=== PATIENT | female | born 1945 | race Caucasian/White ===

== ENCOUNTER 2024-09-05 10:11 | Outpatient (CLI) | payer MEDICARE, SELFPAY ==
[2024-09-05 11:16] LABS: Anion Gap 5 mmol/L (4-12); Blood Urea Nitrogen 27 mg/dL (7-17); Calcium 9.5 mg/dL (8.4-10.2); Carbon Dioxide 29 mmol/L (22-30); Chloride 103 mmol/L (98-107); Estimated Glomerular Filt Rate > 60; Glucose 95 mg/dL (65-110); Potassium 4.1 mmol/L (3.4-5.0); Sodium 137 mmol/L (137-145)
== END 2024-09-05 10:12 | disposition home or self-care (01) ==
LOC: ANHSURGERY 10:19
PROVIDERS: Anesthesiology; Visit Provider Urology
DX: E11.9 Type 2 diabetes mellitus without complications (principal); Z79.899 Other long term (current) drug therapy
CPT/HCPCS: 36415; 80048

== ENCOUNTER 2024-09-14 00:49 | Day surgery (SDC) | payer MEDICARE, SELFPAY ==
[2024-09-04 09:46] VITALS: BMI 35.1
--- NOTE | 2024-09-04 10:07 | PC.NURSE ---
Report to the Outpatient Waiting Room, entrance under the green pavilion located off [facility], at time _06:00am on date _09/14/24 . Planned Procedure Time: _07:30am .? Time changes happen often and if your time is changed the preop area will call you the afternoon before. - You and your visitor will be asked to self-screen and do not enter if you have any COVID symptoms. Please call surgeon if you need to reschedule. - A mask is optional within the hospital at this time. Patients may have clear liquids (water, carbonated beverages, clear teas, apple juice) until 3 hours prior to surgery with a maximum of 20 ounces. - No food from midnight until time of surgery and no smoking. This includes no chewing gum, candy or mints.( 04:30am) Take only the following medications with a SIP of water on the morning of surgery: Coreg, Imdur, Ranexa, and Levothyroxine & Tylenol as needed , DO NOT STOP ANY OF YOUR OTHER PRESCRIPTION MEDICATIONS PRIOR TO SURGERY EXCEPT THE FOLLOWING Hold Plavix and Aspirin for 7 days prior to surgery per Dr Austin, Date to take last dose is 09/06/24 Medications to discontinue per physician Hold all vitamins and supplements for 3 days prior per Anesthesia Date to take last dose____09/10/24 Please no make-up, nail burkinan, hairspray, perfume, deodorant, or body powder the day of surgery.? No jewelry (including any body piercings) or valuables the day of surgery, leave them at home.? Please take a shower or bath the night before, or the morning of, surgery with an antibacterial soap.? Wear comfortable, loose fitting clothing.? - Jewelry must be removed prior to entering the operating room.? Rings and piercings that are not removed may be cut off. - The hospital will not accept responsibility for valuables.? - Please leave all valuables, including medications, at home the day of surgery. If you are going home after surgery, a licensed uke driver must drive you home.? - NO public transportation without another adult if you receive anesthesia. - We recommend that an adult stay with you for 24 hours following discharge. - We also recommend that you do not drive, make important decision, drink alcoholic beverages, or take any drugs that were not prescribed by your health care provider for at least 24 hours after your discharge time. Follow any additional instructions given to you from your surgeon. Telephone instructions given to __Patient and asked if any additional questions and then verbalized understanding. Patient advised to call surgeon office or pre surgery nurse liaison [phone] if any additional questions.
--- NOTE | 2024-09-09 12:05 | PM.IMHP ---
H&P: HPI History of Present Illness Date/Time: 09/09/24 12:05 Chief Complaint: ISD Narrative: mixed incontinence. Bulking agent for ISD Review of Systems Review of Systems: All systems reviewed & are unremarkable except as noted in HPI and below PMFSH Social History Social History Smoking status: Never smoker Alcohol intake: never Substance use: never Living arrangements: with family Spiritual care concerns: No Meds Home Medications and Allergies Home Medications Medication Instructions Recorded Confirmed Type acetaminophen 650 mg 1,300 mg PO Q12H PRN Pain 09/04/24 09/04/24 History tablet,extended release aspirin 81 mg tablet,delayed 81 mg PO DAILY 09/04/24 09/04/24 History release atorvastatin 40 mg tablet 40 mg PO HS 09/04/24 09/04/24 History biotin 1 mg capsule 1 mg PO DAILY 09/04/24 09/04/24 History carvedilol 3.125 mg tablet 3.125 mg PO BID 09/04/24 09/04/24 History cetirizine 10 mg tablet (Zyrtec) 10 mg PO DAILY 09/04/24 09/04/24 History clopidogrel 75 mg tablet 75 mg PO DAILY 09/04/24 09/04/24 History isosorbide mononitrate 30 mg 30 mg PO DAILY 09/04/24 09/04/24 History tablet,extended release 24 hr levothyroxine 25 mcg tablet 25 mcg PO DAILY 09/04/24 09/04/24 History losartan 25 mg tablet 12.5 mg PO DAILY 09/04/24 09/04/24 History montelukast 10 mg tablet 10 mg PO HS 09/04/24 09/04/24 History mv-mn-iron fum-folic acid-omega 3, 1 cap PO DAILY 09/04/24 09/04/24 History 6, 9 no.3 18 mg-600 mcg capsule nitroglycerin 0.3 mg sublingual 0.05 mg sublingual PRN PRN Chest 09/04/24 09/04/24 History tablet Pain pioglitazone 15 mg tablet 15 mg PO BID 09/04/24 09/04/24 History polyethylene glycol 3350 17 gram 17 g PO DAILY 09/04/24 09/04/24 History oral powder packet (Miralax) ranolazine 500 mg tablet,extended 500 mg PO BID 09/04/24 09/04/24 History release,12 hr spironolactone 25 mg tablet 25 mg PO BID 09/04/24 09/04/24 History tramadol 50 mg tablet 50 mg PO PRN PRN Pain 09/04/24 09/04/24 History vibegron 75 mg tablet (Gemtesa) 75 mg PO DAILY 09/04/24 09/04/24 History vitamin D3 25 mcg-vitamin K2 20 1 cap PO DAILY 09/04/24 09/04/24 History mcg-olive leaf extract 250 mg capsule Allergies Allergy/AdvReac Type Severity Reaction Status Date / Time Penicillins Allergy Intermediate Rash Verified 09/04/24 09:35 metformin AdvReac Intermediate Gastrointestinal Verified 09/04/24 09:35 Upset Exam Narrative: NAD A+0X3 Assessment and Plan Assessment and plan (1) Intrinsic sphincter deficiency (ISD): Code(s): N36.42 - Intrinsic sphincter deficiency (ISD) Status: Acute Assessment and Plan: cysto/bulking agent
[2024-09-14] MEDS: LIDOCAINE 2% GEL UROJET 10 ML PKG MUCOUS MEM ×3 (06:53→07:30)
--- NOTE | 2024-09-14 07:08 | WPDANESEPPF ---
Anes - Initial Pre Proc Eval Procedure: Operation Date: 09/14/24 07:30 Proposed Procedures p Cystoscopy, Injection Bulking Agent - Patricio Austin MD Date/Time: 09/14/24 07:08 Surgeon: Patricio Austin MD Pre Op Diagnosis: sensory urge incontinence Patient Data Age: 79 Gender: F Height: 1.6 m Weight: 90 kg Allergies Allergy/AdvReac Type Severity Reaction Status Date / Time Penicillins Allergy Intermediate Rash Verified 09/04/24 09:35 metformin AdvReac Intermediate Gastrointestinal Verified 09/04/24 09:35 Upset Home Medications ?Medication ?Instructions ?Recorded ?Confirmed ?Type acetaminophen 650 mg 1,300 mg PO Q12H PRN Pain 09/04/24 09/04/24 History tablet,extended release aspirin 81 mg tablet,delayed 81 mg PO DAILY 09/04/24 09/04/24 History release atorvastatin 40 mg tablet 40 mg PO HS 09/04/24 09/04/24 History biotin 1 mg capsule 1 mg PO DAILY 09/04/24 09/04/24 History carvedilol 3.125 mg tablet 3.125 mg PO BID 09/04/24 09/04/24 History cetirizine 10 mg tablet (Zyrtec) 10 mg PO DAILY 09/04/24 09/04/24 History clopidogrel 75 mg tablet 75 mg PO DAILY 09/04/24 09/04/24 History isosorbide mononitrate 30 mg 30 mg PO DAILY 09/04/24 09/04/24 History tablet,extended release 24 hr levothyroxine 25 mcg tablet 25 mcg PO DAILY 09/04/24 09/04/24 History losartan 25 mg tablet 12.5 mg PO DAILY 09/04/24 09/04/24 History montelukast 10 mg tablet 10 mg PO HS 09/04/24 09/04/24 History mv-mn-iron fum-folic acid-omega 3, 1 cap PO DAILY 09/04/24 09/04/24 History 6, 9 no.3 18 mg-600 mcg capsule nitroglycerin 0.3 mg sublingual 0.05 mg sublingual PRN PRN Chest 09/04/24 09/04/24 History tablet Pain pioglitazone 15 mg tablet 15 mg PO BID 09/04/24 09/04/24 History polyethylene glycol 3350 17 gram 17 g PO DAILY 09/04/24 09/04/24 History oral powder packet (Miralax) ranolazine 500 mg tablet,extended 500 mg PO BID 09/04/24 09/04/24 History release,12 hr spironolactone 25 mg tablet 25 mg PO BID 09/04/24 09/04/24 History tramadol 50 mg tablet 50 mg PO PRN PRN Pain 09/04/24 09/04/24 History vibegron 75 mg tablet (Gemtesa) 75 mg PO DAILY 09/04/24 09/04/24 History vitamin D3 25 mcg-vitamin K2 20 1 cap PO DAILY 09/04/24 09/04/24 History mcg-olive leaf extract 250 mg capsule Patient hx anesthesia problems: none Family hx anesthesia problems: none Results Review: All pre-operative results and documents have been reviewed as part of the pre-operative evaluation. [facility] Social History Social History Smoking status: Never smoker Alcohol intake: never Substance use: never Living arrangements: with family Spiritual care concerns: No Anes - Eval Final PreProcedure Day of Procedure 09/14/24 07:08 Patient weight: obese Heart: regular rate and rhythm Lungs: clear to auscultation Airway: Mallampati scale class II Neurological: alert and oriented Last oral intake: >/= 8 hours ASA classification: III Emergent: no Anesthetic plan: proceed Anesthesia type and monitoring: general GIVS and standard monitoring Results Review: All pre-operative results and documents have been reviewed as part of the pre-operative evaluation. Informed Consent: The patient's anesthetic plan and its attendant risks and benefits were discussed with the patient/family/POA. Questions were solicited and answers provided to the satisfaction of the patient/family/POA.
--- NOTE | 2024-09-14 07:15 | WPDHPUPDATE1 ---
History and Physical Update Update Date/Time: 09/14/24 07:15 History and Physical has been reviewed, including an updated exam of the patient. There are NO changes in the patient's condition. Risks, benefits, and alternatives have been discussed and questions answered. Patient agrees to proceed with procedure.
[2024-09-14 07:17] VITALS: BP 185/89; PULSE 65; RESP 16; TEMP 36.2; O2SAT 99; BMI 37.0
[2024-09-14] MEDS: LACTATED RINGERS 1,000 ML 30 ML IV CONT (07:20)
[2024-09-14] MEDS: ceFAZolin 2 GM/D5W 50 ML 2 GM/50 ML BAG IVPB (07:24)
[2024-09-14 07:44] VITALS: BP 144/60; PULSE 62; RESP 14; O2SAT 98
--- NOTE | 2024-09-14 07:47 | W.PM.PROC2 ---
Procedure Note - Detailed Date of Procedure 09/14/24 Pre-op Diagnosis Intrinsic sphincter deficiency Post-op Diagnosis Same Procedure Performed Cystoscopy with suburethral injection of implant material Surgeon Patricio Austin MD Mechanical Design Technician None Anesthesia MAC and Local (Uro jet) Indications A woman's mixed incontinence. Presents today for treatment of intrinsic sphincter deficiency. Understands it will not help urge component. Understands risks of bleeding, infection, damage to the urinary tract, need for repeat procedures, urinary retention requiring catheterization. She agrees to proceed Findings Uncomplicated bulking agent Description of Procedure She is correctly identified. Informed consent obtained. From the operating room. She was given monitored anesthesia care. She was placed in dorsal lithotomy position. She was prepped and draped sterile fashion. She was given appropriate perioperative antibiotics. Time-out performed. Cystoscopy revealed a normal-appearing bladder without abnormalities. No tumors. Ureteral orifices were normal. Urethra is open consistent with intrinsic sphincter deficiency. I chose a site in the mid urethra 2 cm distal bladder neck. I injected the bulking agent circumferentially. I used 1-1/2 syringe. There was excellent bulking effect. The bladder was left partially full. She was awakened transferred to PACU in stable condition. Estimated Blood Loss 0 Drains No Packing No Pathology None sent Complications No immediate complications Condition Stable Disposition PACU
[2024-09-14 07:53] LABS: Glucose Point of Care 129 mg/dl (65-105)
[2024-09-14 08:06] LABS: Glucose Point of Care 122 mg/dl (65-105)
[2024-09-14 08:15] VITALS: BP 146/68; PULSE 68; RESP 14
[2024-09-14 08:36] VITALS: BP 143/60; PULSE 72; RESP 16
== END 2024-09-14 08:46 | disposition home or self-care (01) ==
PROVIDERS: Visit Provider Urology
PROC: 3E0K8GC Introduction of Other Therapeutic Substance into Genitourinary Tract, Via Natural or Artificial Opening Endoscopic (ICD-10-PCS; CPT 51715; principal; 2024-09-14 07:30)
DX: N36.42 Intrinsic sphincter deficiency (ISD) (principal); N39.41 Urge incontinence; E66.9 Obesity, unspecified; Z68.37 Body mass index [BMI] 37.0-37.9, adult; Z79.899 Other long term (current) drug therapy; Z79.82 Long term (current) use of aspirin; Z79.02 Long term (current) use of antithrombotics/antiplatelets; Z79.891 Long term (current) use of opiate analgesic
CPT/HCPCS: 51715; 82948; J0690; J1100; J2003; J2405; J2704; J3010; J7030; J7120; L8606

== ENCOUNTER 2024-09-19 11:58 | Emergency (ER) | payer MEDICARE, SELFPAY ==
--- NOTE | ~2024-09-19 | CT_ITS ---
Non-contrast CT scan of the Abdomen and Pelvis Clinical indication: Hematuria Technique: 2.5 mm axial scans were obtained through the abdomen and pelvis without intravenous or or al contrast. Dose reduction technique was used on this scan by utilizing automated exposure control a nd iterative reconstruction technique. The dose-length product (DLP) was 955.23 mGy-cm. Findings: Images through the lung bases reveal several subcentimeter bibasilar pulmonary nodules. Small bilateral nonobstructing renal stones are present measuring 2 mm in size. No ureteral stone or hydronephrosis seen. The liver, spleen, pancreas, and adrenals appear normal. Cholecystectomy clips are present. There are atherosclerotic calcifications of the aorta. . There is no evidence of bowel obstruction. Images through the pelvis were performed. There is no evidence of ascites or lymphadenopathy. Urinary bladder unremarkable. No pelvic mass seen. Impression: Small bilateral nonobstructing renal stones, as detailed above. Reviewed, dictated and finalized at [facility]. NUFACTURING TECHNICIAN Impression: Small bilateral nonobstructing renal stones, as detailed above.
[2024-09-19 12:01] VITALS: BP 142/77; PULSE 63; RESP 18; TEMP 36.4; O2SAT 99
--- NOTE | 2024-09-19 12:26 | ED.FEMALEGU ---
HPI - Female Genitourinary General Chief complaint: Urogenital-Female Stated complaint: hematuria since this am Time Seen by Provider: 09/19/24 12:21 History of Present Illness HPI Narrative: 79-year-old female presents to emergency department with hematuria this morning. Patient had a cystoscopy with suburethral injection of implant material on 09/14/[address] Austin for intrinsic sphincter deficiency. Per operative notes there were no immediate complications and the patient was discharged same day. she presents today because she began having some discomfort with urinating yesterday and today had 2 episodes of bright red hematuria with small clots. She went to urgent care and had a urinalysis which showed hematuria. reportedly urgent care contacted Dr. Austin and requested the patient come to the ED for further evaluation of blood work. Upon my evaluation the patient states she believes the blood has significantly improved. She is reporting some discomfort to the suprapubic region but denies abdominal pain, nausea vomiting, fever, flank pain. She does endorse a history of kidney stones several years ago. Related Data Home Medications ?Medication ?Instructions ?Recorded ?Confirmed ?Last Taken ?Type acetaminophen 650 mg 1,300 mg PO Q12H PRN Pain 09/04/24 09/14/24 09/14/24 History tablet,extended release aspirin 81 mg tablet,delayed 81 mg PO DAILY 09/04/24 09/04/24 Unknown History release atorvastatin 40 mg tablet 40 mg PO HS 09/04/24 09/04/24 Unknown History biotin 1 mg capsule 1 mg PO DAILY 09/04/24 09/04/24 Unknown History carvedilol 3.125 mg tablet 3.125 mg PO BID 09/04/24 09/14/24 09/14/24 History cetirizine 10 mg tablet (Zyrtec) 10 mg PO DAILY 09/04/24 09/04/24 Unknown History clopidogrel 75 mg tablet 75 mg PO DAILY 09/04/24 09/04/24 Unknown History isosorbide mononitrate 30 mg 30 mg PO DAILY 09/04/24 09/14/24 09/14/24 History tablet,extended release 24 hr levothyroxine 25 mcg tablet 25 mcg PO DAILY 09/04/24 09/14/24 09/14/24 History losartan 25 mg tablet 12.5 mg PO DAILY 09/04/24 09/04/24 Unknown History montelukast 10 mg tablet 10 mg PO HS 09/04/24 09/04/24 Unknown History mv-mn-iron fum-folic acid-omega 3, 1 cap PO DAILY 09/04/24 09/04/24 Unknown History 6, 9 no.3 18 mg-600 mcg capsule nitroglycerin 0.3 mg sublingual 0.05 mg sublingual PRN PRN Chest 09/04/24 09/04/24 Unknown History tablet Pain pioglitazone 15 mg tablet 15 mg PO BID 09/04/24 09/04/24 Unknown History polyethylene glycol 3350 17 gram 17 g PO DAILY 09/04/24 09/04/24 Unknown History oral powder packet (Miralax) ranolazine 500 mg tablet,extended 500 mg PO BID 09/04/24 09/14/24 09/14/24 History release,12 hr spironolactone 25 mg tablet 25 mg PO BID 09/04/24 09/04/24 Unknown History tramadol 50 mg tablet 50 mg PO PRN PRN Pain 09/04/24 09/04/24 Unknown History vibegron 75 mg tablet (Gemtesa) 75 mg PO DAILY 09/04/24 09/04/24 Unknown History vitamin D3 25 mcg-vitamin K2 20 1 cap PO DAILY 09/04/24 09/04/24 Unknown History mcg-olive leaf extract 250 mg capsule Allergies Allergy/AdvReac Type Severity Reaction Status Date / Time Penicillins Allergy Intermediate Rash Verified 09/19/24 12:00 metformin AdvReac Intermediate Gastrointestinal Verified 09/19/24 12:00 Upset Review of Systems Review of Systems: All systems reviewed & are unremarkable except as noted in HPI and below PMFSH Social History Social History Smoking status: Never smoker Alcohol intake: never Substance use: never Living arrangements: with family Spiritual care concerns: No Exam Narrative: GENERAL: Well-appearing, well-nourished, and in no acute distress. HEAD: Normocephalic, atraumatic. EYES: EOMI. ENT: Nares clear, no rhinorrhea or epistaxis. Mucous membranes moist. NECK: Supple. CHEST: Clear to auscultation. No respiratory distress. HEART: Regular rate and rhythm. No murmur heard. Normal peripheral pulses. ABDOMEN: Soft, nontender, nondistended, normal active bowel sounds. No rebound, guarding or rigidity. No CVA tenderness EXTREMITIES: Normal range of motion. No edema. SKIN: Warm, dry, no rash. NEURO: No focal deficits. Alert and oriented x3 Course Vital Signs Vital signs: Vital Signs Temperature 97.6 F 09/19/24 12:01 Pulse Rate 63 09/19/24 12:01 Respiratory Rate 18 09/19/24 12:01 Blood Pressure 142/77 H 09/19/24 12:01 Pulse Oximetry 99 09/19/24 12:01 Oxygen Delivery Room Air 09/19/24 12:01 Temperature 97.6 F 09/19/24 12:01 Pulse Rate 63 09/19/24 12:01 Respiratory Rate 18 09/19/24 12:01 Blood Pressure 142/77 H 09/19/24 12:01 Pulse Oximetry 99 09/19/24 12:01 Oxygen Delivery Room Air 09/19/24 12:01 MDM - Female Genitourinary MDM Narrative Medical decision making narrative: 79-year-old female with recent cystoscopy for intrinsic sphincter deficiency by Dr. Austin presents to the ED for hematuria and discomfort with urinating. See HPI for further history. Triage vitals significant mild elevated blood pressure, otherwise unremarkable. Patient is afebrile nontoxic appearing. Abdomen is soft and nontender. CBC shows no leukocytosis or anemia. Chemistries with a normal creatinine of 0.8, BUN mildly elevated at 24. Urinalysis with large amount of rbc's and wbc's, 3+ leuk esterase. Urine culture is pending. CT abdomen pelvis shows small bilateral nonobstructing renal stones. Patient updated on workup. I did see her urine prior to it being sent to the lab which is more orange colored, no clots or bright red blood visualized. She is not retaining. Given she is symptomatic, plan to treat for a UTI with Keflex. I did update the patient's urologist, Dr. Austin, who agrees to the plan. Advised follow-up discussed strict ED return precautions. Patient is agreeable with the plan verbalized understanding. Discharged in stable condition. Lab Data 09/19/24 13:16 09/19/24 13:16 Labs: Lab Results 09/19/24 Range/Units 13:16 WBC 9.6 (4.5-10.0) K/mm3 RBC 4.04 L (4.2-5.4) M/mm3 Hgb 13.4 (12.0-15.0) g/dL Hct 39.3 (37.0-47.0) % MCV 97.3 (80-100) fl MCH 33.2 (26-34) pg MCHC 34.1 (32-36) g/dl RDW 12.9 (11.5-14.5) % Plt Count 189 (150-375) k/mm3 MPV 9.6 (7.4-10.4) fl Immature Gran % (Auto) 0.7 H (0-0.5) % Neut % (Auto) 76.3 H (45.5-73.1) % Lymph % (Auto) 11.7 L (18.3-44.2) % [place] % (Auto) 9.4 H (2.6-8.5) % Eos % (Auto) 1.5 (0-4.4) % Baso % (Auto) 0.4 (0.2-1.2) % Lymph # (Auto) 1.12 (0.9-3.2) K/mm3 [place] # (Auto) 0.9 H (0.1-0.6) K/mm3 Eos # (Auto) 0.1 (0-0.3) K/mm3 Baso # (Auto) 0.0 (0.0-0.1) K/mm3 Abs Immat Gran (auto) 0.07 H (0.00-0.031) K/mm3 Absolute Neuts (auto) 7.3 H (1.3-6.7) K/mm3 Absolute Nucleated RBC 0.000 (0.0-0.012) K/mm3 Nucleated RBC % 0.0 (0.0-0.2) % Sodium 135 L (137-145) mmol/L Potassium 4.0 (3.4-5.0) mmol/L Chloride 103 (98-107) mmol/L Carbon Dioxide 27 (22-30) mmol/L Anion Gap 5 (4-12) mmol/L BUN 24 H (7-17) mg/dL Creatinine 0.80 (0.7-1.0) mg/dL Estim Creat Clear Calc 55 ml/min Estimated GFR > 60 (59 - ) Glucose 109 (65-110) mg/dL Calcium 9.5 (8.4-10.2) mg/dL Total Bilirubin 1.3 (0.2-1.3) mg/dL AST 27 (14-36) U/L ALT 17 (6-35) U/L Alkaline Phosphatase 98 (38-126) U/L Total Protein 7.0 (6.3-8.2) g/dL Albumin 4.3 (3.5-5.1) g/dL Urine Color Dark yellow (Yellow) Urine Appearance Turbid H (Clear) Urine pH 7.0 (5.0-9.0) Ur Specific [place] 1.022 (1.001-1.035) Urine Protein 2+ H (Negative) mg/dL Urine Glucose (UA) Negative (Negative) mg/dL Urine Ketones Negative (Negative) mg/dL Ur Blood (Man) 3+ H (Negative) Urine Nitrate Negative (Negative) Urine Bilirubin Negative (Negative) Urine Urobilinogen 2.0 H (<2.0) mg/dL Leukocyte Esterase Rfl 3+ H (Negative) ARIANNE/UL Urine RBC >100 H (0-2) /hpf Urine WBC >100 H (0-3) /hpf Ur Squamous Epith Cells Occasional (Few) /hpf Urine Bacteria None seen /hpf Urine Casts 0-2 Discharge Plan Discharge Clinical Impression: Urinary tract infection Qualifiers: Urinary tract infection type: acute cystitis Hematuria presence: with hematuria Qualified Code(s): N30.01 - Acute cystitis with hematuria Hematuria Qualifiers: Hematuria type: unspecified type Qualified Code(s): R31.9 - Hematuria, unspecified Patient Disposition: Home, Self-Care Condition: Stable Instructions: Antibiotic Form, Urinary Tract Infection in Women (ED), Hematuria (ED) Additional Instructions: Take antibiotics as directed. Follow-up with your urologist. Return to the emergency department if you develop abdominal pain, fever, You are unable to urinate, or other concerning symptoms. Patient Language: Malay Prescriptions: New cephalexin 500 mg capsule 500 mg PO Q6H Qty: 28 0RF No Action pioglitazone 15 mg tablet 15 mg PO BID atorvastatin 40 mg tablet 40 mg PO HS nitroglycerin 0.3 mg tablet, sublingual 0.05 mg sublingual PRN PRN (Reason: Chest Pain) isosorbide mononitrate 30 mg tablet extended release 24 hr 30 mg PO DAILY clopidogrel 75 mg tablet 75 mg PO DAILY tramadol 50 mg tablet 50 mg PO PRN PRN (Reason: Pain) spironolactone 25 mg tablet 25 mg PO BID carvedilol 3.125 mg tablet 3.125 mg PO BID levothyroxine 25 mcg tablet 25 mcg PO DAILY losartan 25 mg tablet 12.5 mg PO DAILY montelukast 10 mg tablet 10 mg PO HS ranolazine 500 mg tablet extended release 12 hr 500 mg PO BID biotin 1 mg Capsule 1 mg PO DAILY aspirin 81 mg Tablet,Delayed Release (Dr/Ec) 81 mg PO DAILY Women's Multi 18-600 mg-mcg Capsule 1 cap PO DAILY vit D3-vit K2-olive leaf ext 25 mcg-20 mcg- 250 mg Capsule 1 cap PO DAILY cetirizine [Zyrtec] 10 mg Tablet 10 mg PO DAILY Gemtesa 75 mg Tablet 75 mg PO DAILY acetaminophen 650 mg Tablet Extended Release 1,300 mg PO Q12H PRN (Reason: Pain) polyethylene glycol 3350 [Miralax] 17 gram Powder In Packet 17 g PO DAILY Follow-up/Referrals: Patricio Austin MD [Physician] - PHYSICIAN NOT ON STAFF,NONSTAFF [Non-Staff] -
[2024-09-19 13:27] LABS: Basophils Percent Auto 0.4 % (0.2-1.2); Eosinophils Absolute Auto 0.1 K/mm3 (0-0.3); Eosinophils Percent Auto 1.5 % (0-4.4); Hematocrit 39.3 % (37.0-47.0); Hemoglobin 13.4 g/dL (12.0-15.0); Immature Granulocyte Absolute 0.07 K/mm3 (0.00-0.031); Immature Granulocyte Percent A 0.7 % (0-0.5); Lymphocytes Absolute Auto 1.12 K/mm3 (0.9-3.2); Lymphocytes Percent Auto 11.7 % (18.3-44.2); Mean Corpuscular HGB Conc 34.1 g/dl (32-36); Mean Corpuscular Hemoglobin 33.2 pg (26-34); Mean Corpuscular Volume 97.3 fl (80-100); Mean Platelet Volume 9.6 fl (7.4-10.4); Monocytes Absolute Auto 0.9 K/mm3 (0.1-0.6); Monocytes Percent Auto 9.4 % (2.6-8.5); Neutrophils Absolute Auto 7.3 K/mm3 (1.3-6.7); Neutrophils Percent Auto 76.3 % (45.5-73.1); Platelet Count Result 189 k/mm3 (150-375); Red Blood Count 4.04 M/mm3 (4.2-5.4); Red Cell Distribution Width 12.9 % (11.5-14.5); White Blood Count 9.6 K/mm3 (4.5-10.0)
[2024-09-19 13:36] LABS: Add Urine Microscopic? YES; Appearance Urine Turbid (Clear); Bacteria Urine None Seen /hpf; Bilirubin Urine Negative (Negative); Blood Urine 3+ (Negative); Color Urine Dark Yellow (Yellow); Glucose Urine UA Negative (Negative); Ketones Urine Negative (Negative); Leukocyte Esterase Ur 3+ LEU/UL (Negative); Nitrate Urine Negative (Negative); Non Pathogenic Casts 0-2; Protein Urine 2+ mg/dL (Negative); RBC Urine >100 /hpf (0-2); Specific Grav Ur 1.022 (1.001-1.035); Squamous Epithelial Cell Urine Occasional /hpf (Few); WBC Urine >100 /hpf (0-3)
[2024-09-19 13:38] LABS: Alanine Aminotransferase 17 U/L (6-35); Albumin Level 4.3 g/dL (3.5-5.1); Alkaline Phosphatase 98 U/L (38-126); Anion Gap 5 mmol/L (4-12); Aspartate Amino Transferase 27 U/L (14-36); Bilirubin,Total 1.3 mg/dL (0.2-1.3); Blood Urea Nitrogen 24 mg/dL (7-17); Calcium 9.5 mg/dL (8.4-10.2); Carbon Dioxide 27 mmol/L (22-30); Chloride 103 mmol/L (98-107); Estimated CRCL calculation 55 ml/min; Estimated Glomerular Filt Rate > 60; Glucose 109 mg/dL (65-110); Sodium 135 mmol/L (137-145)
[2024-09-19] MEDS: CEPHALEXIN 500 MG CAPSULE PO (14:48)
[2024-09-19 14:51] VITALS: BP 146/77; PULSE 61; RESP 20; TEMP 36.7; O2SAT 100
== END 2024-09-19 14:53 | disposition home or self-care (01) ==
PROVIDERS: Emergency Provider Physician Assistant
DX: N30.01 Acute cystitis with hematuria (principal); Z79.02 Long term (current) use of antithrombotics/antiplatelets; Z79.899 Other long term (current) drug therapy; Z79.82 Long term (current) use of aspirin
CPT/HCPCS: 36415; 74176; 80053; 81001; 85025; 87086; 99284; A9270